=== PATIENT | female | born 1995 | race Two or more races ===

== ENCOUNTER → 2020-07-05 | Outpatient (CLI) | payer BC ==
--- NOTE | 2020-07-05 12:10 | KCIC ---
EXAM: Cervical spine, 5 views; thoracic spine, 3 views. HISTORY: Pain. Fall. COMPARISON: None. FINDINGS: Cervical spine: There is cervical kyphosis centered at C5. There is no listhesis. The vertebral junior s are normal in height. There is minimal disc space narrowing and slight endplate remodeling at C5-C6 . Thoracic spine: 3 views of the thoracic spine are obtained. There is no listhesis. The vertebral bodi es are normal in height and the disc spaces are preserved. IMPRESSION: 1. No acute osseous finding. 2. Mild cervical kyphosis and minimal degenerative change at C5-C6. Electronically signed by: Elisha Roy MD (07/05/2020 12:08 PM) [id number]
== END ==
LOC: KCIC 11:04
PROVIDERS: ATTEND Internal Medicine
DX: M47.812 Spondylosis without myelopathy or radiculopathy, cervical region (principal); M40.292 Other kyphosis, cervical region
CPT/HCPCS: 72050; 72072